=== PATIENT | female | born 1970 | race Caucasian/White ===

== ENCOUNTER 2020-09-17 12:24 | Emergency (ER) | payer OTHER ==
[~2020-09-17] VITALS: Ht 170.2 cm; Wt 81.2 kg
[2020-09-17 12:33] VITALS: BP_SYST 115
[2020-09-17] MEDS ORDERED: IBUP-1969 PO (13:33)
[2020-09-17] MEDS ORDERED: HYDR-3917 PO (13:39)
[2020-09-17 13:51] VITALS: BP_SYST 121
[2020-09-17] MEDS ORDERED: MORPHINE 4 MG INJ. 4 MG/ML VIAL IM ONE (14:15)
== END 2020-09-17 13:51 | disposition home or self-care (01) ==
LOC: SED 12:24
DX: S82.65XA Nondisplaced fracture of lateral malleolus of left fibula, initial encounter for closed fracture (principal); X50.1XXA Overexertion from prolonged static or awkward postures, initial encounter; Y93.01 Activity, walking, marching and hiking; Y92.89 Other specified places as the place of occurrence of the external cause; Y99.8 Other external cause status
CPT/HCPCS: 29515; 73610; 96372; 99283; J2270